=== PATIENT | male | born 1995 ===

== ENCOUNTER 2020-09-23 10:00 | Outpatient (CLI) | payer OTHER | END 2020-09-23 10:01 | disposition home or self-care (01) | LOC: PPH VACUNA 10:00 | DX: Z23 Encounter for immunization (principal) ==

== ENCOUNTER 2020-10-14 08:00 | Outpatient (CLI) | payer OTHER | END 2020-10-14 08:30 | disposition home or self-care (01) | LOC: PPH VACUNA 08:00 | DX: Z23 Encounter for immunization (principal) ==